=== PATIENT | female | born 1975 | race Two or more races ===

== ENCOUNTER 2019-10-13 06:38 | Day surgery (SDC) | payer OTHER ==
[2019-10-12 11:22] VITALS: BMI 27.7
[2019-10-13 07:02] LABS: EOS % 1.6 % (0-4.5); HEMATOCRIT 40.3 % (32.4-45.2); HEMOGLOBIN 13.3 GM/dL (10.7-15.3); LYMPH % 28.3 % (8-40); MCH 29.9 pg (25.7-33.7); MEAN CELL VOLUME 90.7 fl (80-96); MEAN PLT VOLUME 7.4 fl (7.5-11.1); MONO % 7.5 % (3.8-10.2); NEUT % 61.6 % (42.8-82.8); PLATELET COUNT 253 K/MM3 (134-434); RBC 4.44 M/mm3 (3.60-5.2); RDW 13.6 % (11.6-15.6); WHITE BLOOD COUNT 6.3 K/mm3 (4.0-10.0)
--- NOTE | 2019-10-13 07:23 | HP ---
History & Physical Update - History History: No Change - Physical Physical: No Change - Assessment Assessment: No Change - Plan Plan: No Change (H&P updated, Consent signed and witnessed, all questions answered)
[2019-10-13] MEDS ORDERED: PROPOFOL 20 ML ONE ×5 (07:24→07:54)
[2019-10-13] MEDS ORDERED: IBUPROFEN 600 MG TABLET (FP) PO PRN (07:25)
[2019-10-13] MEDS ORDERED: IBUPROFEN 800 MG/8 ML IJ IVPB PRN (07:25)
[2019-10-13] MEDS ORDERED: ONDANSETRON 4 MG/2 ML VIAL IVPUSH PRN (07:25)
[2019-10-13] MEDS ORDERED: oxyCODONE HCL 5 MG TABLET PO PRN (07:25)
[2019-10-13] MEDS ORDERED: MIDAZOLAM HCL 2 MG/2 ML SINGLE DOSE VIAL ONE (07:27)
[2019-10-13] MEDS ORDERED: ELECTROLYTE-148 SOLN 1,000 ML IV SCH (07:30)
--- NOTE | 2019-10-13 07:40 | OP ---
Operative Note - Note: Operative Date: 10/13/19 Pre-Operative Diagnosis: 44yo with metrorrhagia Operation: Hysteroscopy, resection of scar tissue, myomectomy, polypectomy, D&C Findings: 1. Endometrial cavity full of scar tissue 2. Endometrial polyps 3. Submucosal fibroid Post-Operative Diagnosis: Same as Pre-op Surgeon: Faviola Khanna Anesthesiologist/[employer]TA[employer] SALES MANAGER: Jc Slaughter Anesthesia: MAC Specimens Removed: 1. Endometrial scar. 2. Endometrial fibroid. 3. Endometrial polyps Estimated Blood Loss (mls): 50 Instrument used (Debridements only): Symphion Drains & Tubes with Location: Fluid deficit 2250cc Drains, Volume Out (mls): 100 Fluid Volume Replaced (mls): 400 Operative Report Dictated: Yes
[2019-10-13] MEDS ORDERED: MEPERIDINE HCL CARPU-JECT 25 MG/1 ML DISP.SYRIN IVPUSH ONE (08:28)
[2019-10-13] MEDS ORDERED: MEPERIDINE HCL 25 MG/ML VIAL IVPUSH PRN (08:28)
[2019-10-13] MEDS ORDERED: MEPERIDINE HCL 25 MG/ML VIAL ONE (08:28)
[2019-10-13] MEDS ORDERED: LACTATED RINGERS SOLUTION 1,000 ML IV SCH (08:30)
[2019-10-13 09:40] LABS: BLOOD UREA NITROGEN 8.5 mg/dL (7-18); CALCIUM 7.8 mg/dL (8.5-10.1); CREATININE 0.6 mg/dL (0.55-1.3); POTASSIUM 3.5 mmol/L (3.5-5.1)
[2019-10-13 11:41] VITALS: BP 120/80; PULSE 72; TEMP 97.9
--- NOTE | 2019-10-14 14:58 | PATH ---
Surgical Pathology Report Patient Name: ADRI MEADE [facility]. Rec. #: [id number] /Age/Gender: 1975 (Age: 44) / F Account: [id number] Location: [facility] SURGICAL Taken: 10/13/2019 Received: 10/13/2019 Reported: 10/14/2019 Physicians: Faviola Khanna M.D. Specimen(s) Received ENDOMETRIAL SCAR TISSUE, POLYPS, FIBROIDS Clinical History Menometrorrhagia, uterine fibroids Final Diagnosis ENDOMETRIAL SCAR TISSUE, POLYPS, FIBROIDS, HYSTEROSCOPIC RESECTION OF SCAR TISSUE, POLYPECTOMY, MYOMECTOMY, DILATION AND CURETTAGE: <1G BUNDLES OF SMOOTH MUSCLE CONSISTENT WITH SUBMUCOSAL LEIOMYOMA ADMIXED WITH FRAGMENTS OF FIBROUS TISSUE, POLYPOID ENDOMETRIUM WITH RARE INACTIVE ENDOMETRIAL GLANDS, AND CHRONIC ENDOMETRITIS. Electronically Signed Joyce Cohen M.D. Gross Description Received in formalin labeled "endometrial scar tissue, polyps, fibroids," is a 2.4 x 2.0 x 0.3 cm aggregate of franklin soft tissue fragments. The formalin is filtered and the specimen is entirely submitted in one cassette. [id number]/13/201910/13/2019
--- NOTE | 2019-10-15 13:31 | OP ---
DATE OF OPERATION: 10/13/2019 PREOPERATIVE DIAGNOSIS: A 44-year-old with metrorrhagia. OPERATION: Hysteroscopy, lysis of uterine adhesion, resection of uterine scar tissue, myomectomy, polypectomy, dilation and curettage. FINDINGS: Endometrial cavity full of scar tissue, endometrial polyps, and submucosal fibroid. POSTOPERATIVE DIAGNOSIS: A 44-year-old with metrorrhagia. SURGEON: Noman Lopez MD ANESTHESIOLOGIST: Jc Slaughter DO ANESTHESIA: MAC. SPECIMENS SENT FOR PATHOLOGY: Endometrial scar, endometrial fibroid, endometrial polyps. DESCRIPTION OF THE OPERATIVE PROCEDURE: After assuring informed consent, patient was brought to the operating room where she was placed in dorsal lithotomy position. Perineum and vagina were prepped and draped in a sterile fashion. The Baptiste retractors placed into the vaginal. Anterior cervix lip articulated with single-tooth tenaculum. Cervix dilated gradually to accommodate 6.3-mm Symphion hysteroscope. Symphion hysteroscope was wide balanced and primed and introduced without any difficulty into the uterine cavity. The above findings were noted, and instrument was introduced through the operative port of the Symphion, and endometrial adhesions, polyp, and submucosal fibroids were all resected without any difficulty with good visualization of the endometrial cavity. Optimal resection was achieved. Subsequently, all instruments were removed from the cervix, uterus, and vagina. Urinary bladder was drained 100 mL. Estimated blood loss 50 mL. Patient received 400 mL of IV fluids, and fluid deficit was noted to be 2250 mL. Patient was brought to the recovery room in stable condition. Sponge and instrument count was correct x2. Electrolytes in the recovery room were all normal, and patient went home without any difficulty fully stable. NOMAN LOPEZ M.D. [id number]
== END 2019-10-13 11:50 | disposition home or self-care (01) ==
LOC: JASU-SURG 06:38
PROVIDERS: ATTEND Obstetrics & Gynecology
PROC: 0UB97ZX Excision of Uterus, Via Natural or Artificial Opening, Diagnostic (ICD-10-PCS; 2019-10-13)
PROC: 0UDB7ZX Extraction of Endometrium, Via Natural or Artificial Opening, Diagnostic (ICD-10-PCS; 2019-10-13)
PROC: 0UJD8ZZ Inspection of Uterus and Cervix, Via Natural or Artificial Opening Endoscopic (ICD-10-PCS; 2019-10-13)
PROC: 0UN98ZZ Release Uterus, Via Natural or Artificial Opening Endoscopic (ICD-10-PCS; 2019-10-13)
PROC: 0UB98ZZ Excision of Uterus, Via Natural or Artificial Opening Endoscopic (ICD-10-PCS; principal; 2019-10-13 07:30)
DX: N92.1 Excessive and frequent menstruation with irregular cycle (principal); N84.0 Polyp of corpus uteri; D25.0 Submucous leiomyoma of uterus; N85.6 Intrauterine synechiae
CPT/HCPCS: 36415; 80048; 84703; 85025; 88305-TC; 94760